=== PATIENT | male | born 1950 | race Caucasian/White ===

== ENCOUNTER 2017-05-21 10:57 | Day surgery (SDC) | payer MEDICARE ==
[~2017-05-21] VITALS: Ht 170.2 cm; Wt 86.9 kg
[2017-05-21] MEDS ORDERED: LISI10TA4 PO ×2 (11:25→15:21)
[2017-05-21] MEDS ORDERED: ALFU10TA2 PO ×2 (11:25→15:21)
[2017-05-21] MEDS ORDERED: ASPI81TA24 (11:25)
[2017-05-21] MEDS ORDERED: ROSU10TA2 PO (11:25)
[2017-05-21] MEDS ORDERED: RANI150T PO ×2 (11:25→15:21)
[2017-05-21] MEDS ORDERED: ALBU17IN INH ×2 (11:25→15:21)
[2017-05-21] MEDS ORDERED: SYMB80INH INH ×2 (11:25→15:21)
[2017-05-21] MEDS ORDERED: GLUCAGON FOR INJ 1 MG VIAL (J1610) IV STA (12:20)
[2017-05-21] MEDS ORDERED: ASPI81TA24 PO (15:21)
[2017-05-21] MEDS ORDERED: CRES10TA32 PO (15:21)
[2017-05-21] MEDS ORDERED: fentaNYL 100 MCG/2 ML INJECTION (J3010) As Ordered ONE (15:22)
[2017-05-21] MEDS ORDERED: LIDOCAINE 2% INJ 100 MG/5 ML SDV (FOR ANES.) As Ordered ONE (15:22)
[2017-05-21] MEDS ORDERED: SUCCINYLCHOLINE 100 MG/5 ML SYRINGE (J0330) As Ordered ONE (15:22)
[2017-05-21] MEDS ORDERED: PROPOFOL 200 MG/20 ML VIAL As Ordered ONE (15:22)
[2017-05-21] MEDS ORDERED: MIDAZOLAM INJ 2 MG/2 ML VIAL (J2250) As Ordered ONE (15:22)
[2017-05-21] MEDS ORDERED: ONDANSETRON 4MG/2ML VIAL (J2405) IV PRN ×2 (16:45)
[2017-05-21] MEDS ORDERED: LR 1,000 ML IV SCH ×2 (16:45)
[2017-05-21 17:25] VITALS: BP 161/84
[2017-05-21 18:00] VITALS: BP 165/82
[2017-05-21 18:30] VITALS: BP 167/82
--- NOTE | 2017-05-26 09:02 | ROOR ---
Patient Name: Senthil Clark Procedure Date: 05/21/2017 3:26 PM Date of : 1950 Age: 67 Room: Main OR Gender: Male Note Status: Finalized Procedure: Upper GI endoscopy Indications: Foreign body in the esophagus Providers: Felipe Vidales Jr, MD Referring MD: Felipe Vidales Jr, MD Requesting Provider: Medicines: General Anesthesia Complications: No immediate complications. Procedure: Pre-Anesthesia Assessment: - Prior to the procedure, a History and Physical was performed, and patient medications and allergies were reviewed. The patient is competent. The risks and benefits of the procedure and the sedation options and risks were discussed with the patient. All questions were answered and informed consent was obtained. Patient identification and proposed procedure were verified by the physician and the nurse in the pre-procedure area and in the procedure room. Mental Status Examination: alert and oriented. Airway Examination: normal oropharyngeal airway and neck mobility. Respiratory Examination: clear to auscultation. CV Examination: normal. ASA Grade Assessment: II - A patient with mild systemic disease. After reviewing the risks and benefits, the patient was deemed in satisfactory condition to undergo the procedure. The anesthesia plan was to use moderate sedation / analgesia (conscious sedation). Immediately prior to administration of medications, the patient was re-assessed for adequacy to receive sedatives. The heart rate, respiratory rate, oxygen saturations, blood pressure, adequacy of pulmonary ventilation, and response to care were monitored throughout the procedure. The physical status of the patient was re-assessed after the procedure. The Endoscope was introduced through the mouth, and advanced to the second part of duodenum. The patient tolerated the procedure well. Findings: The upper third of the esophagus, middle third of the esophagus and lower third of the esophagus were normal. One moderate benign-appearing, intrinsic stenosis was found at the gastroesophageal junction. And was traversed. LA Grade B (one or more mucosal breaks greater than 5 mm, not extending between the tops of two mucosal folds) esophagitis was found at the gastroesophageal junction. Food was found at the gastroesophageal junction. Removal was accomplished with a rat-toothed forceps. The cardia, gastric fundus, gastric body, gastric antrum, prepyloric region of the stomach and pylorus were normal. The duodenal bulb was normal. Impression: - Normal upper third of esophagus, middle third of esophagus and lower third of esophagus. - Benign-appearing esophageal stenosis. - LA Grade B esophagitis. - Food was found in the esophagus. Removal was successful. - Normal cardia, gastric fundus, gastric body, antrum, prepyloric region of the stomach and pylorus. - Normal duodenal bulb. Recommendation: - Discharge patient to home (ambulatory). - Return to my office in 2 weeks. Felipe Vidales MD Felipe Vidales Jr, MD 05/26/2017 9:01:49 AM This report has been signed electronically. Number of Addenda: 0 Note Initiated On: 05/21/2017 3:26 PM Estimated Blood Loss: Estimated blood loss: none.
== END 2017-05-21 19:35 | disposition home or self-care (01) ==
LOC: M ED 12:54 → M SDC 15:24 → M PED 18:05 → M SDC 19:35
PROVIDERS: ATTEND Surgery
DX: T18.128A Food in esophagus causing other injury, initial encounter (principal); X58.XXXA Exposure to other specified factors, initial encounter; Y92.89 Other specified places as the place of occurrence of the external cause; Y93.89 Activity, other specified; Y99.8 Other external cause status; K22.2 Esophageal obstruction; K20.9 Esophagitis, unspecified; I10 Essential (primary) hypertension; E78.5 Hyperlipidemia, unspecified; I25.10 Atherosclerotic heart disease of native coronary artery without angina pectoris; J45.909 Unspecified asthma, uncomplicated; J44.9 Chronic obstructive pulmonary disease, unspecified; N40.0 Benign prostatic hyperplasia without lower urinary tract symptoms; Z88.5 Allergy status to narcotic agent; Z88.8 Allergy status to other drugs, medicaments and biological substances; Z79.899 Other long term (current) drug therapy; Z79.82 Long term (current) use of aspirin; Z87.891 Personal history of nicotine dependence; Z95.5 Presence of coronary angioplasty implant and graft; Z96.1 Presence of intraocular lens
CPT/HCPCS: 43247; 96374; 99284; J0330; J1610; J2250; J3010

== ENCOUNTER 2017-07-20 06:20 | Outpatient (CLI) | payer MEDICARE ==
[~2017-07-20] VITALS: Ht 167.6 cm; Wt 87.1 kg
[~2017-07-20 06:20] MED LIST: ALBU17IN INH; ALFU10TA2 PO; ASPI81TA24; ASPI81TA24 PO; CRES10TA32 PO; LISI10TA4 PO; RANI150T PO; ROSU10TA2 PO; SYMB80INH INH
[2017-07-20] MEDS ORDERED: NS 1,000 ML IV SCH (07:00)
[2017-07-20] MEDS ORDERED: PROPOFOL 200 MG/20 ML VIAL As Ordered ONE (07:07)
[2017-07-20] MEDS ORDERED: LIDOCAINE 2% INJ 100 MG/5 ML SDV (FOR ANES.) As Ordered ONE (07:07)
--- NOTE | 2017-07-20 07:55 | ROOR ---
Patient Name: Senthil Clark Procedure Date: 07/20/2017 7:39 AM Date of : 1950 Age: 67 Room: [facility] Gender: Male Note Status: Finalized Procedure: Upper GI endoscopy Indications: Dysphagia Providers: Felipe Vidales Jr, MD Referring MD: Brooks Godinez MD Requesting Provider: Medicines: Propofol per Anesthesia Complications: No immediate complications. Procedure: Pre-Anesthesia Assessment: - Prior to the procedure, a History and Physical was performed, and patient medications and allergies were reviewed. The patient is competent. The risks and benefits of the procedure and the sedation options and risks were discussed with the patient. All questions were answered and informed consent was obtained. Patient identification and proposed procedure were verified by the physician and the nurse in the pre-procedure area and in the procedure room. Mental Status Examination: alert and oriented. Airway Examination: normal oropharyngeal airway and neck mobility. Respiratory Examination: clear to auscultation. CV Examination: normal. ASA Grade Assessment: II - A patient with mild systemic disease. After reviewing the risks and benefits, the patient was deemed in satisfactory condition to undergo the procedure. The anesthesia plan was to use moderate sedation / analgesia (conscious sedation). Immediately prior to administration of medications, the patient was re-assessed for adequacy to receive sedatives. The heart rate, respiratory rate, oxygen saturations, blood pressure, adequacy of pulmonary ventilation, and response to care were monitored throughout the procedure. The physical status of the patient was re-assessed after the procedure. The Endoscope was introduced through the mouth, and advanced to the second part of duodenum. The upper GI endoscopy was accomplished without difficulty. The patient tolerated the procedure well. Findings: The upper third of the esophagus, middle third of the esophagus and lower third of the esophagus were normal. Abnormal motility was noted in the mid esophagus. There are extra peristaltic waves in the esophageal body. The distal esophagus/lower esophageal sphincter is open. A hiatal hernia was present. The cardia, gastric fundus and gastric body were normal. Diffuse mild inflammation characterized by congestion (edema), erythema, friability and granularity was found in the gastric antrum and in the prepyloric region of the stomach. Biopsies were taken with a cold forceps for histology. The duodenal bulb, first portion of the duodenum and second portion of the duodenum were normal. Impression: - Normal upper third of esophagus, middle third of esophagus and lower third of esophagus. - Abnormal esophageal motility. - Hiatal hernia. - Normal cardia, gastric fundus and gastric body. - Bile gastritis. Biopsied. - Normal duodenal bulb, first portion of the duodenum and second portion of the duodenum. Recommendation: - Discharge patient to home (ambulatory). - Return to my office in 1 month. Felipe Vidales MD Felipe Vidales Jr, MD 07/20/2017 7:55:23 AM This report has been signed electronically. Number of Addenda: 0 Note Initiated On: 07/20/2017 7:39 AM Estimated Blood Loss: Estimated blood loss: none.
[2017-07-20 08:21] VITALS: BP 150/75
== END 2017-07-20 09:00 | disposition home or self-care (01) ==
LOC: M OPP 06:20
PROVIDERS: ATTEND Surgery
DX: R13.10 Dysphagia, unspecified (principal); K44.9 Diaphragmatic hernia without obstruction or gangrene; K29.70 Gastritis, unspecified, without bleeding; K22.4 Dyskinesia of esophagus; I25.10 Atherosclerotic heart disease of native coronary artery without angina pectoris; I10 Essential (primary) hypertension; Z95.5 Presence of coronary angioplasty implant and graft; E78.5 Hyperlipidemia, unspecified; I34.1 Nonrheumatic mitral (valve) prolapse; E11.9 Type 2 diabetes mellitus without complications; R12 Heartburn; M19.90 Unspecified osteoarthritis, unspecified site; J45.909 Unspecified asthma, uncomplicated; J44.9 Chronic obstructive pulmonary disease, unspecified; R06.83 Snoring; N40.1 Benign prostatic hyperplasia with lower urinary tract symptoms; Z88.5 Allergy status to narcotic agent; Z88.8 Allergy status to other drugs, medicaments and biological substances; Z79.82 Long term (current) use of aspirin; Z79.899 Other long term (current) drug therapy

== ENCOUNTER 2017-08-16 12:11 | Emergency (ER) | payer MEDICARE ==
[~2017-08-16] VITALS: Ht 175.3 cm; Wt 89.1 kg
[2017-08-16] MEDS ORDERED: SUCR1TA PO (12:21)
[2017-08-16] MEDS ORDERED: KETOROLAC TROMETHAMINE 10 MG TAB PO ONE (13:15)
[2017-08-16] MEDS ORDERED: MOBI4TAB PO (14:28)
[2017-08-16 14:43] VITALS: BP 158/92
--- NOTE | 2017-08-16 14:57 | REP ---
RIGHT KNEE SERIES: Five views of the right knee are performed. There is no acute fracture or dislocation. There is mild diffuse chondrocalcinosis. There is no joint effusion. There is a tiny spur of the lateral patellar facet. There is slight medial joint space narrowing. IMPRESSION: Mild degenerative changes. No fracture or dislocation. Signed by Clinton Lockwood MD 08/17/2017 05:33 P
== END 2017-08-16 14:44 | disposition home or self-care (01) ==
LOC: M ED 12:11
DX: M17.11 Unilateral primary osteoarthritis, right knee (principal); I10 Essential (primary) hypertension; E11.9 Type 2 diabetes mellitus without complications; E78.4 Other hyperlipidemia

== ENCOUNTER → 2018-05-28 | Outpatient (CLI) | payer OTHER, MEDICARE ==
[2018-05-28 09:33] LABS: ANION GAP 10 MEQ/L (8-16); BLOOD UREA NITROGEN 17 MG/DL (7-18); CALCIUM LEVEL 9.4 MG/DL (8.8-10.2); CARBON DIOXIDE LEVEL 24 MEQ/L (21-32); CHLORIDE LEVEL 108 MEQ/L (98-107); CREATININE FOR GFR 1.42 MG/DL (0.70-1.30); GLOMERULAR FILTRATION RATE 52.9 (>49); GLUCOSE, FASTING 98 MG/DL (70-100); POTASSIUM SERUM 4.3 MEQ/L (3.5-5.1); SODIUM LEVEL 142 MEQ/L (136-145)
== END ==
LOC: M LAB 08:33
DX: Z01.812 Encounter for preprocedural laboratory examination (principal); S83.241D Other tear of medial meniscus, current injury, right knee, subsequent encounter; X58.XXXD Exposure to other specified factors, subsequent encounter; Y92.9 Unspecified place or not applicable
CPT/HCPCS: 80048

== ENCOUNTER → 2020-04-30 | Outpatient (REF) | payer MEDICARE ==
[~2020-04-30] MED LIST changes: -ALFU10TA2 PO; +ALFU10TA3 PO; +CRES10TA PO; -CRES10TA32 PO; +MOBI4TAB PO; -ROSU10TA2 PO; +ROSU10TA6 PO; +SUCR1TA PO
[2020-04-30 18:26] LABS: APPEARANCE, URINE CLEAR (CLEAR); BACTERIA, URINE AUTO NEGATIVE (NEGATIVE); BILIRUBIN, URINE AUTO NEGATIVE (NEGATIVE); BLOOD, URINE BLOOD NEGATIVE (NEGATIVE); COLOR, URINE STRAW (YELLOW); GLUCOSE, URINE (UA) AUTO NEGATIVE (NEGATIVE); KETONE, URINE AUTO NEGATIVE (NEGATIVE); LEUKOCYTE ESTERASE, URINE AUTO NEGATIVE (NEGATIVE); NITRITE, URINE AUTO NEGATIVE (NEGATIVE); PROTEIN, URINE AUTO NEGATIVE (NEGATIVE); RBC, URINE AUTO 0 /HPF (0-3); SPECIFIC GRAVITY URINE AUTO 1.006 (1.002-1.035); SQUAMOUS EPITHELIAL CELL UR AU 0 /HPF (0-6); UROBILINOGEN, URINE AUTO 0.2 mg/dL (0.0-2.0); WBC, URINE AUTO 1 /HPF (0-3)
== END ==
LOC: M SMT 17:14
PROVIDERS: ATTEND Nurse Practitioner Family
DX: R31.0 Gross hematuria (principal)
CPT/HCPCS: 51798; 81001; 87086; 88108; G0463

== ENCOUNTER → 2020-05-19 | Outpatient (CLI) | payer MEDICARE ==
[~2020-05-19] MED LIST changes: +ISOVUE-370 76% 100ML VIAL As Ordered ONE
--- NOTE | 2020-05-19 11:39 | REP ---
CT ABDOMEN AND PELVIS WITH AND WITHOUT IV CONTRAST: (CT urogram) CT abdomen and pelvis performed prior to and following the intravenous administration of 100 mL of Isovue 370. Sagittal and coronal reconstruction images are performed as well as 3D MIP reconstruction images. The visualized lung bases are clear. The liver demonstrates a lobulated cyst in the left lobe measuring 1.7 cm in maximum diameter. The gallbladder is grossly unremarkable. The spleen is normal in size with no intrinsic abnormality. The adrenal glands are normal. No pancreatic mass is seen. There is no evidence of renal, ureteral, or bladder calculus. There is no hydroureteronephrosis. No renal mass is seen. Ureters demonstrate no abnormality. Urinary bladder is mildly distended. There is significant impression upon the base of the bladder due to a markedly enlarged lobulated prostate gland. The prostate measures 10.0 x 7.5 x 7.5 cm. There is no abdominal aortic aneurysm with mild atherosclerotic calcifications. There is a small hiatal hernia. There is no adenopathy. There is no free air or free fluid. There is no bowel wall thickening. There are small bilateral inguinal hernias containing fat. No bone lesion is seen. IMPRESSION: No renal, ureteral or bladder calculus. No renal mass. Markedly enlarged prostate impresses upon the base of the bladder. No adenopathy. Cyst left lobe of the liver. Small bilateral inguinal hernias containing fat. Electronically Signed by Clinton Lockwood MD 05/20/2020 04:36 P
== END ==
LOC: M RAD 07:04
PROVIDERS: ATTEND Nurse Practitioner Family
DX: R31.9 Hematuria, unspecified (principal)
CPT/HCPCS: 74178; Q9967

== ENCOUNTER → 2021-01-01 | Outpatient (CLI) | payer MEDICARE ==
[~2021-01-01] MED LIST changes: +ALBU83IN INH; +FAMO40TA3 PO; +FINA5TAB2 PO; -ISOVUE-370 76% 100ML VIAL As Ordered ONE; +LISI10TA22 PO; -LISI10TA4 PO
== END ==
LOC: M LABSMTC 11:55
PROVIDERS: ATTEND Anesthesiology
DX: Z01.812 Encounter for preprocedural laboratory examination (principal); Z20.822 Contact with and (suspected) exposure to COVID-19

== ENCOUNTER 2021-01-06 10:38 | Day surgery (SDC) | payer MEDICARE ==
[~2021-01-06] VITALS: Ht 170.2 cm; Wt 71.7 kg
[~2021-01-06 10:38] MED LIST changes: +LIDOCAINE 2% 100MG/5ML SDV (FOR ANES.) As Ordered ONE; +NS 1,000 ML IV ONE; +propofoL 200 MG/20 ML VIAL As Ordered ONE
--- OUTSIDE RECORDS SUMMARY | 2021-01-06 10:43 | CCD ---
Author Author [facility] Organization [facility] Address Unknown Phone Unavailable Care Team Providers Care Hand Trucker Name Role Phone Fish, B Raffy KILLIAN Unavailable Unavailable Fish, B Raffy KILLIAN Unavailable Unavailable Fish, B Raffy KILLIAN Unavailable Unavailable Fish, B Raffy KILLIAN Unavailable Unavailable Fish, B Raffy KILLIAN Unavailable Unavailable Fish, B Raffy KILLIAN Unavailable Unavailable Fish, B Raffy KILLIAN Unavailable Unavailable Fish, B Raffy KILLIAN Unavailable Unavailable Fish, B Raffy KILLIAN Unavailable Unavailable Fish, B Raffy KILLIAN Unavailable Unavailable Fish, B Raffy KILLIAN Unavailable Unavailable Fish, B Raffy KILLIAN Unavailable Unavailable Fish, B Raffy KILLIAN Unavailable Unavailable Fish, B Raffy KILLIAN Unavailable Unavailable Fish, B Raffy KILLIAN Unavailable Unavailable Fish, B Raffy KILLIAN Unavailable Unavailable Fish, B Raffy KILLIAN Unavailable Unavailable Fish, B Raffy KILLIAN Unavailable Unavailable Fish, B Raffy KILLIAN Unavailable Unavailable Fish, B Raffy KILLIAN Unavailable Unavailable Fish, B Raffy KILLIAN Unavailable Unavailable Fish, B Raffy KILLIAN Unavailable Unavailable Fish, B Raffy KILLIAN Unavailable Unavailable Fish, B Raffy KILLIAN Unavailable Unavailable Fish, B Raffy KILLIAN Unavailable Unavailable Fish, B Raffy KILLIAN Unavailable Unavailable Fish, B Raffy KILLIAN Unavailable Unavailable Fish, B Raffy KILLIAN Unavailable Unavailable Fish, B Raffy KILLIAN Unavailable Unavailable Fish, B Raffy KILLIAN Unavailable Unavailable Fish, B Raffy KILLIAN Unavailable Unavailable Fish, B Raffy KILLIAN Unavailable Unavailable Fish, B Raffy KILLIAN Unavailable Unavailable Fish, B Raffy KILLIAN Unavailable Unavailable Fish, B Raffy KILLIAN Unavailable Unavailable Fish, B Raffy KILLIAN Unavailable Unavailable Fish, B Raffy KILLIAN Unavailable Unavailable Fish, B Raffy MD Unavailable Unavailable Fish, B Raffy MD Unavailable Unavailable Fish, B Raffy MD Unavailable Unavailable Fish, B Raffy MD Unavailable Unavailable Fish, B Raffy MD Unavailable Unavailable Fish, B Raffy MD Unavailable Unavailable Fish, B Raffy MD Unavailable Unavailable Fish, B Raffy MD Unavailable Unavailable Fish, B Raffy MD Unavailable Unavailable Fish, B Raffy MD Unavailable Unavailable Fish, B Raffy MD Unavailable Unavailable Fish, B Raffy MD Unavailable Unavailable Fish, B Raffy MD Unavailable Unavailable Fish, B Raffy MD Unavailable Unavailable Fish, B Raffy MD Unavailable Unavailable Fish, B Raffy MD Unavailable Unavailable Re-disclosure Warning The records that you are about to access may contain information from federally-assisted alcohol or drug abuse programs. If such information is present, then the following federally mandated warning applies: This information has been disclosed to you from records protected by federal confidentiality rules (42 CFR part 2). The federal rules prohibit you from making any further disclosure of this information unless further disclosure is expressly permitted by the written consent of the person to whom it pertains or as otherwise permitted by 42 CFR part 2. A general authorization for the release of medical or other information is NOT sufficient for this purpose. The Federal rules restrict any use of the information to criminally investigate or prosecute any alcohol or drug abuse patient.The records that you are about to access may contain highly sensitive health information, the redisclosure of which is protected by Article 27-F of the [facility] Public Health law. If you continue you may have access to information: Regarding HIV / AIDS; Provided by facilities licensed or operated by the [facility] Office of Mental Health; or Provided by the [facility] Office for People With Developmental Disabilities. If such information is present, then the following [facility] mandated warning applies: This information has been disclosed to you from confidential records which are protected by state law. State law prohibits you from making any further disclosure of this information without the specific written consent of the person to whom it pertains, or as otherwise permitted by law. Any unauthorized further disclosure in violation of state law may result in a fine or half-way sentence or both. A general authorization for the release of medical or other information is NOT sufficient authorization for further disc losure. Family History Family Member Name Family Member Gender Family Member Status Date o f Status Description Data Source(s) Unknown Male Problem MEDENT ([facility]) Encounters Encounter Providers Location Date Indications Data Source(s ) Outpatient Attender: Raffy Loja MD Physical Therapy 07/14/2020 0 2:15:00 PM EDT [facility] ([facility]) Unknown [address] [address] 06/16/2020 12:00:00 AM EDT eCW1 ([facility]) [place] [address] [address] 04/30/2020 12:00:00 AM EDT eCW1 ([facility]) Unknown [address] [address] 04/30/2020 12:00:00 AM EDT eCW1 ([facility]) Immunizations Vaccine Date Status Description Data Source(s) INFLUENZA VIRUS VACCINE QUADRIVAL SPLIT (65 YR UP)/PF 07/23/2020 12:00:00 AM EDT completed [facility] Medications Medication Brand Name Start Date Product Form Dose Route Admi nistrative Instructions Pharmacy Instructions Status Indications Reaction Description Data Source(s) 1.479-0.188 gram 12/25/2020 12:00:00 AM EST tablet 24 TAKE DIRECTED TAKE DIRECTED SOLD: 12/29/2020 [facility] 10 mg 09/22/2020 12:00:00 AM EDT tablet 90 TAKE ONE TABLET BY MOUTH EVERY DAY TAKE ONE TABLET BY MOUTH EVERY DAY SOLD: 09/29/2020 [facility] Finasteride 5 MG Oral Tablet FINASTERIDE 09/22/2020 12:00:00 AM EDT ta blet 90 TAKE ONE TABLET BY MOUTH EVERY DAY TAKE ONE TABLET BY MOUTH EVERY DAY SOLD: 12/29/2020 [facility] Finasteride 5 MG Oral Tablet FINASTERIDE 09/22/2020 12:00:00 AM EDT ta blet 90 TAKE ONE TABLET BY MOUTH EVERY DAY TAKE ONE TABLET BY MOUTH EVERY DAY SOLD: 09/29/2020 [facility] 40 mg 09/22/2020 12:00:00 AM EDT tablet 90 TAKE ONE TABLET BY MOUTH AT BEDTIME TAKE ONE TABLET BY MOUTH AT BEDTIME SOLD: 09/29/2020 [facility] Famotidine 40 MG Oral Tablet FAMOTIDINE 09/22/2020 12:00:00 AM EDT tab let 90 TAKE ONE TABLET BY MOUTH AT BEDTIME TAKE ONE TABLET BY MOUTH AT BEDTIME SOLD: 12/29/2020 [facility] 10 mg 09/22/2020 12:00:00 AM EDT tablet 90 TAKE ONE TABLET BY MOUTH EVERY DAY TAKE ONE TABLET BY MOUTH EVERY DAY SOLD: 12/29/2020 [facility] 10 mg 09/21/2020 12:00:00 AM EDT tablet 90 TAKE ONE TABLET BY MOUTH EVERY DAY TAKE ONE TABLET BY MOUTH EVERY DAY SOLD: 09/29/2020 [facility] Rosuvastatin calcium 10 MG Oral Tablet ROSUVASTATIN CALCIUM 09/21/2020 12:00:00 AM EDT tablet 90 TAKE ONE TABLET BY MOUTH SIGRID DAY TAKE ONE TABLET BY MOUTH EVERY DAY SOLD: 12/29/2020 [facility] 20 mg 09/15/2020 12:00:00 AM EDT tablet 10 TAKE ONE TABLET BY MOUTH TWICE A DAY FOR 5 DAYS TAKE ONE TABLET BY MOUTH TWICE A DAY FOR 5 DAYS SOLD: 2019 [facility] 40 mg 07/22/2020 12:00:00 AM EDT tablet 90 TAKE ONE TABLET BY MOUTH AT BEDTIME TAKE ONE TABLET BY MOUTH AT BEDTIME SOLD: 07/24/2020 [facility] 10 mg 07/22/2020 12:00:00 AM EDT tablet 90 TAKE ONE TABLET BY MOUTH EVERY DAY TAKE ONE TABLET BY MOUTH EVERY DAY SOLD: 07/24/2020 [facility] 10 mg 07/22/2020 12:00:00 AM EDT tablet 90 TAKE ONE TABLET BY MOUTH EVERY DAY TAKE ONE TABLET BY MOUTH EVERY DAY SOLD: 07/24/2020 [facility] 5 mg 06/16/2020 12:00:00 AM EDT tablet 90 TAKE ONE TABLET BY MOUTH EVERY DAY TAKE ONE TABLET BY MOUTH EVERY DAY SOLD: 06/16/2020 [facility] 5 mg 05/26/2020 12:00:00 AM EDT tablet 30 TAKE ONE TABLET BY MOUTH EVERY DAY TAKE ONE TABLET BY MOUTH EVERY DAY SOLD: 05/26/2020 [facility] Finasteride 5 MG Oral Tablet Finasteride 5 MG 05/26/2020 12:00:00 A M EDT 1.0 {tablet} active Finasteride 5 MG eCW1 ( [facility]) Ciprofloxacin 500 MG Oral Tablet Ciprofloxacin HCl 500 MG Ciprofloxacin HCl 500 MG 04/30/2020 12:00:00 AM EDT active Ciprofloxacin HCl 500 MG eCW1 ([facility]) 500 mg 04/30/2020 12:00:00 AM EDT tablet 1 TAKE ONE TABLET BY MOUTH 1 HOUR PRIOR TO YOUR CYSTOSCOPY ONCE TAKE ONE TABLET BY MOUTH 1 HOUR PRIOR TO YOUR CYSTOSCOPY ONCE SOLD: 04/30/2020 [facility] Ciprofloxacin 500 MG Oral Tablet Ciprofloxacin HCl 500 MG Ciprofloxacin HCl 500 MG 04/30/2020 12:00:00 AM EDT active Ciprofloxacin HCl 500 MG eCW1 ([facility]) 40 mg 01/25/2020 12:00:00 AM EST tablet 90 TAKE ONE TABLET BY MOUTH AT BEDTIME TAKE ONE TABLET BY MOUTH AT BEDTIME SOLD: 01/28/2020 [facility] 10 mg 01/25/2020 12:00:00 AM EST tablet 90 TAKE ONE TABLET BY MOUTH EVERY DAY TAKE ONE TABLET BY MOUTH EVERY DAY SOLD: 01/28/2020 [facility] 10 mg 01/25/2020 12:00:00 AM EST tablet extended release 24 hr 90 TAKE 1 TABLET IMMEDIATELY AFTER THE SAME MEAL EACH DAY ONCE DAILY TAKE 1 TABLET IMMEDIATELY AFTER THE SAME MEAL EACH DAY ONCE DAILY SOLD: 01/28/2020 [facility] 10 mg 01/25/2020 12:00:00 AM EST tablet extended release 24 hr 90 TAKE 1 TABLET IMMEDIATELY AFTER THE SAME MEAL EACH DAY ONCE DAILY TAKE 1 TABLET IMMEDIATELY AFTER THE SAME MEAL EACH DAY ONCE DAILY SOLD: 04/27/2020 [facility] 10 mg 01/25/2020 12:00:00 AM EST tablet 90 TAKE ONE TABLET BY MOUTH EVERY DAY TAKE ONE TABLET BY MOUTH EVERY DAY SOLD: 01/28/2020 [facility] 10 mg 01/25/2020 12:00:00 AM EST tablet 90 TAKE ONE TABLET BY MOUTH EVERY DAY TAKE ONE TABLET BY MOUTH EVERY DAY SOLD: 04/27/2020 [facility] 40 mg 01/25/2020 12:00:00 AM EST tablet 90 TAKE ONE TABLET BY MOUTH AT BEDTIME TAKE ONE TABLET BY MOUTH AT BEDTIME SOLD: 04/27/2020 [facility] 10 mg 01/25/2020 12:00:00 AM EST tablet 90 TAKE ONE TABLET BY MOUTH EVERY DAY TAKE ONE TABLET BY MOUTH EVERY DAY SOLD: 04/27/2020 [facility] 40 mg 11/25/2019 12:00:00 AM EST tablet 30 TAKE ONE TABLET BY MOUTH AT BEDTIME TAKE ONE TABLET BY MOUTH AT BEDTIME SOLD: 11/29/2019 [facility] 40 mg 11/25/2019 12:00:00 AM EST tablet 30 TAKE ONE TABLET BY MOUTH AT BEDTIME TAKE ONE TABLET BY MOUTH AT BEDTIME SOLD: 12/30/2019 [facility] 10 mg 08/25/2019 12:00:00 AM EDT tablet 30 TAKE ONE TABLET BY MOUTH EVERY DAY TAKE ONE TABLET BY MOUTH EVERY DAY SOLD: 12/30/2019 [facility] 10 mg 08/25/2019 12:00:00 AM EDT tablet extended release 24 hr 30 TAKE ONE TABLET BY MOUTH IMMEDIATELY AFTER THE SAME MEAL ONCE DAILY TAKE ONE TABLET BY MOUTH IMMEDIATELY AFTER THE SAME MEAL ONCE DAILY SOLD: 12/30/2019 [facility] 10 mg 08/25/2019 12:00:00 AM EDT tablet 30 TAKE ONE TABLET BY MOUTH EVERY DAY TAKE ONE TABLET BY MOUTH EVERY DAY SOLD: 11/29/2019 [facility] 10 mg 08/25/2019 12:00:00 AM EDT tablet 30 TAKE ONE TABLET BY MOUTH EVERY DAY TAKE ONE TABLET BY MOUTH EVERY DAY SOLD: 11/29/2019 [facility] 10 mg 08/25/2019 12:00:00 AM EDT tablet 30 TAKE ONE TABLET BY MOUTH EVERY DAY TAKE ONE TABLET BY MOUTH EVERY DAY SOLD: 12/30/2019 [facility] 10 mg 08/25/2019 12:00:00 AM EDT tablet extended release 24 hr 30 TAKE ONE TABLET BY MOUTH IMMEDIATELY AFTER THE SAME MEAL ONCE DAILY TAKE ONE TABLET BY MOUTH IMMEDIATELY AFTER THE SAME MEAL ONCE DAILY SOLD: 11/29/2019 [facility] Insurance Providers Payer name Policy type / Coverage type Policy ID Covered libertarian ID Covered libertarian's relationship to tillman Policy Tillman Plan Information [facility] MEDICARE [id number] SP [id number] [facility] [id number] [place] [id number] Self [id number] [facility] ([facility] Medigap Part B [id number] Self [id number] [employer] Medigap Part B [id number] Self [id number] Wellcare Commercial [id number] Self [id number] [place] [id number] Self [id number] [facility] ([facility]) Medigap Part B [id number] Self [id number] [employer] Commercial [id number] Self [id number] [place] [id number] Self [id number] [facility] ([facility]) Medigap Part B [id number] Self [id number] [employer] Commercial [id number] Self [id number] [place] [id number] Self [id number] [employer] Medigap Part B [id number] Self [id number] [facility]) Commercial [id number] Self [id number] [place] [id number] Self [id number] [employer] Medigap Part B [id number] Self [id number] [facility]) Commercial [id number] Self [id number] [place] [id number] Self [id number] [employer] Medigap Part B [id number] Self [id number] [facility]) Commercial [id number] Self [id number] [employer] [id number] SP [id number] MEDICARE [id number] SP [id number] A MEDICARE COMPLETE [id number] SP [id number] [place] [id number] Self [id number] [place] Part [place] [id number] Self [id number] [employer] Medigap Part B [id number] Self [id number] [employer] Medigap Part B [id number] Self [id number] [facility]) Commercial [id number] Self [id number] [place] [id number] Self [id number] [place] Part B [id number] Self [id number] [employer] Medigap Part B [id number] Self [id number] [employer] Medigap Part B [id number] Self [id number] [facility]) Commercial [id number] Self [id number] [place] [id number] Self [id number] [place] Med[place] [id number] Self [id number] [facility]) Commercial [id number] Self [id number] [place] [id number] Self [id number] [place] [id number] Self [id number] [facility]) Commercial [id number] Self [id number] [place] Med[place] [id number] Self [id number] [place] Med[place] B [id number] Self [id number] [facility] ([facility]) Commercial [id number] Self [id number] [place] [id number] Self [id number] [place] [id number] Self [id number] [facility] ([facility]) Commercial [id number] Self [id number] [place] [id number] Self [id number] [place] [id number] Self [id number] [facility] ([facility]) Commercial [id number] Self [id number] [place] [id number] Self [id number] [place] Med[place] [id number] Self [id number] [facility] ([facility]) Commercial [id number] Self [id number] [place] [id number] Self [id number] [place] Part B [id number] Self [id number] [facility] ([facility] Commercial [id number] Self [id number] [place] Med[place] [id number] Self [id number] [id number] [place] Part B [id number] Self [id number] [facility] ([facility]) Commercial [id number] Self [id number] MEDICARE BLUE PPO 306 [id number] SP [id number] UNITED HEALTHCARE -O/P [id number] 18 [id number] MEDICARE PART A -O/P [id number] 18 [id number] [facility] [id number] 18 [id number] BLUE CROSS BLUE SHIELD-O/P [id number] 18 [id number] [employer] MEDICARE ADVANTAGE -O/P [id number] 18 [id number] BLUE CROSS BLUE SHIELD-PHYSICIAN [id number] 18 [id number] Problems, Conditions, and Diagnoses Code Display Name Description Problem Type Effective Dates Data Source(s) R31.0 Gross hematuria Gross hematuria Problem 04/30/2020 12:0 0:00 AM EDT eCW1 ([facility]) Surgeries/Procedures Procedure Description Date Indications Data Source(s) RADIOLOGIC EXAM KNEE COMPLETE 4/MORE VIEWS 07/14/2020 12:00:00 AM EDT [facility] ([facility]) uro PVR (Post Voiding Residual) Bladder Scan 0 12:00:00 AM EDT eCW1 ([facility]) Results ID Date Data Source [id number] 01/01/2021 11:30:00 AM EST [facility] Name Value Range Interpretation Code Description Data [facility] rce(s) Supporting Document(s) SARS coronavirus 2 RNA Not Detected [facility] [place] This lab was ordered by [facility] and reported by [facility]. Procedure Social History Code Duration Value Status Description Data Source(s ) Smoking 05/26/2020 12:00:00 AM EDT Former Smoker completed Former Smoker eCW1 ([facility]) Smoking 04/30/2020 12:00:00 AM EDT Former Smoker completed Former Smoker eCW1 ([facility]) Smoking 04/30/2020 12:00:00 AM EDT Former Smoker completed Former Smoker eCW1 ([facility]) Vital Signs ID Date Data Source UNK Name Value Range Interpretation Code Description Data Source(s) Diastolic blood pressure 81 mm[Hg] 81 mm[Hg] eCW1 ([facility]) Systolic blood pressure 145 mm[Hg] 145 mm[Hg] e CW1 ([facility]) Body temperature 98 [degF] 98 [degF] eCW1 ([facility]) Respiratory rate 18 /min 18 /min eCW1 ([facility]) Heart rate 82 /min 82 /min eCW1 ([facility]) Body mass index (BMI) [Ratio] 25.54 kg/m2 25.54 kg/m2 eCW1 ([facility]) Body height 68 [in_i] 68 [in_i] eCW1 ([facility]) Body weight 168 [lb_av] 168 [lb_av] eCW1 ([facility]) Patient Treatment Plan of Care Planned Activity Planned Date Details Description Data Source (s) Finasteride 5 MG Oral Tablet 05/26/2020 12:00:00 AM EDT eCW1 ([facility]) Ciprofloxacin 500 MG Oral Tablet 04/30/2020 12:00:00 AM EDT eCW1 ([facility]) Ciprofloxacin 500 MG Oral Tablet 04/30/2020 12:00:00 AM EDT eCW1 ([facility])
--- NOTE | 2021-01-06 11:50 | ROOR ---
Patient Name: Senthil Clark Procedure Date: 01/06/2021 11:35 AM Date of : 1950 Age: 70 Room: [facility] Gender: Male Note Status: Finalized Procedure: Upper Endoscopy + Biopsies Indications: Heartburn, Exclusion of Rosado's esophagus Providers: Bar Jiménez MD Referring MD: Brooks Godinez MD Requesting Provider: Medicines: Monitored Anesthesia Care Complications: No immediate complications. Procedure: Pre-Anesthesia Assessment: - The heart rate, respiratory rate, oxygen saturations, blood pressure, adequacy of pulmonary ventilation, and response to care were monitored throughout the procedure. The Endoscope was introduced through the mouth, and advanced to the second part of duodenum. The upper GI endoscopy was accomplished without difficulty. The patient tolerated the procedure well. Findings: The Z-line was regular and was found 35 cm from the incisors. Multiple biopsies were obtained with cold forceps for evaluation to rule out Rosado's Esophagus randomly at the gastroesophageal junction. A large hiatal hernia was present. No other significant abnormalities were identified in a careful examination of the stomach. Biopsies were taken with a cold forceps in the gastric antrum for Helicobacter pylori testing. The exam was otherwise without abnormality. Impression: - Z-line regular, 35 cm from the incisors. - Large hiatal hernia. - The examination was otherwise normal. - Multiple biopsies were obtained at the gastroesophageal junction. - Biopsies were taken with a cold forceps for Helicobacter pylori testing. - The examination was otherwise normal. Recommendation: - Patient has a contact number available for emergencies. The signs and symptoms of potential delayed complications were discussed with the patient. Return to normal activities tomorrow. Written discharge instructions were provided to the patient. - High fiber diet. - Discharge patient to home. - Follow an antireflux regimen. - Continue present medications. - Await pathology results. - Telephone GI clinic for pathology results in 1 week. - Return to referring physician. - The findings and recommendations were discussed with the patient. Procedure Code(s): --- Professional --- 54584, Esophagogastroduodenoscopy, flexible, transoral; with biopsy, single or multiple Diagnosis Code(s): --- Professional --- K44.9, Diaphragmatic hernia without obstruction or gangrene R12, Heartburn CPT copyright 2019 [employer]. All rights reserved. The codes documented in this report are preliminary and upon hoistman review may be revised to meet current compliance requirements. Bar Jiménez MD Bar Jiménez MD 01/06/2021 11:50:27 AM Electronically signed by Bar Jiménez MD Number of Addenda: 0 Note Initiated On: 01/06/2021 11:35 AM Estimated Blood Loss: Estimated blood loss: none.
--- NOTE | 2021-01-06 12:07 | ROOR ---
Patient Name: Senthil Clark Procedure Date: 01/06/2021 11:36 AM Date of : 1950 Age: 70 Room: [facility] Gender: Male Note Status: Finalized Procedure: Total Colonoscopy to Cecum Indications: Screening for colorectal malignant neoplasm Providers: Bar Jiménez MD Referring MD: Brooks Godinez MD Requesting Provider: Medicines: Monitored Anesthesia Care Complications: No immediate complications. Procedure: Pre-Anesthesia Assessment: - The heart rate, respiratory rate, oxygen saturations, blood pressure, adequacy of pulmonary ventilation, and response to care were monitored throughout the procedure. The Colonoscope was introduced through the anus and advanced to the cecum, identified by appendiceal orifice and ileocecal valve. The colonoscopy was performed without difficulty. The patient tolerated the procedure well. The quality of the bowel preparation was fair. Findings: The perianal and digital rectal examinations were normal. Non-bleeding internal hemorrhoids were found during retroflexion. The hemorrhoids were small and Grade I (internal hemorrhoids that do not prolapse). A moderate amount of stool was found in the entire colon, interfering with visualization. The exam was otherwise without abnormality on direct and retroflexion views. Impression: - Preparation of the colon was fair. - Non-bleeding internal hemorrhoids. - Stool in the entire examined colon. - The examination was otherwise normal on direct and retroflexion views. - No specimens collected. - The exam was otherwise normal to the cecum. Recommendation: - Patient has a contact number available for emergencies. The signs and symptoms of potential delayed complications were discussed with the patient. Return to normal activities tomorrow. Written discharge instructions were provided to the patient. - High fiber diet. - Discharge patient to home. - Continue present medications. - Repeat colonoscopy in 10 years for screening purposes. - Return to referring physician. - The findings and recommendations were discussed with the patient. Procedure Code(s): --- Professional --- 01907, Colonoscopy, flexible; diagnostic, including collection of specimen(s) by brushing or washing, when performed (separate procedure) Diagnosis Code(s): --- Professional --- Z12.11, Encounter for screening for malignant neoplasm of colon K64.0, First degree hemorrhoids CPT copyright 2019 [employer]. All rights reserved. The codes documented in this report are preliminary and upon death surveys coder review may be revised to meet current compliance requirements. Bar Jiménez MD Bar Jiménez MD 01/06/2021 12:07:16 PM Electronically signed by Bar Jiménez MD Number of Addenda: 0 Note Initiated On: 01/06/2021 11:36 AM Estimated Blood Loss: Estimated blood loss: none.
[2021-01-06 12:45] VITALS: BP 159/75
== END 2021-01-06 12:54 | disposition home or self-care (01) ==
LOC: M OPP 10:38
PROVIDERS: ATTEND Internal Medicine Gastroenterology
DX: Z12.11 Encounter for screening for malignant neoplasm of colon (principal); R12 Heartburn; K64.0 First degree hemorrhoids; D13.1 Benign neoplasm of stomach; K44.9 Diaphragmatic hernia without obstruction or gangrene; I25.10 Atherosclerotic heart disease of native coronary artery without angina pectoris; I10 Essential (primary) hypertension; E78.5 Hyperlipidemia, unspecified; E11.9 Type 2 diabetes mellitus without complications; M19.90 Unspecified osteoarthritis, unspecified site; F32.9 Major depressive disorder, single episode, unspecified; J44.9 Chronic obstructive pulmonary disease, unspecified; Z87.891 Personal history of nicotine dependence; Z88.5 Allergy status to narcotic agent; Z88.8 Allergy status to other drugs, medicaments and biological substances; Z79.82 Long term (current) use of aspirin; Z79.899 Other long term (current) drug therapy
CPT/HCPCS: 43239; 88305; G0121

== ENCOUNTER → 2022-01-24 | Outpatient (CLI) | payer MEDICARE ==
[~2022-01-24] MED LIST changes: -LIDOCAINE 2% 100MG/5ML SDV (FOR ANES.) As Ordered ONE; -NS 1,000 ML IV ONE; -propofoL 200 MG/20 ML VIAL As Ordered ONE
[2022-01-24 13:29] LABS: BASO # 0.1 10^3/uL (0.0-0.2); EOS # 0.1 10^3/uL (0.0-0.5); EOS % 1.6 % (0.0-3.0); HEMATOCRIT 46.4 % (42.0-52.0); HEMOGLOBIN 14.8 g/dl (13.5-17.5); LYMPH # 1.7 10^3/uL (1.5-5.0); LYMPH % 25.2 % (24.0-44.0); MEAN CORPUSCULAR HEMOGLOBIN 28.5 pg (27.0-33.0); MEAN CORPUSCULAR HGB CONC 31.9 g/dl (32.0-36.5); MEAN CORPUSCULAR VOLUME 89.2 fl (80.0-96.0); MONO # 0.8 10^3/uL (0.0-0.8); MONO % 11.1 % (2.0-8.0); NEUTROPHILS # 4.2 10^3/uL (1.5-8.5); PLATELET COUNT, AUTOMATED 260 10^3/uL (150-450); WHITE BLOOD COUNT 6.8 10^3/uL (4.0-10.0)
[2022-01-24 14:01] LABS: ERYTHROCYTE SEDIMENTATION RATE 4 mm/hr (0-20)
[2022-01-24 16:43] LABS: ALBUMIN 4.2 GM/DL (3.2-5.2); ALT/SGPT 21 U/L (12-78); BILIRUBIN,TOTAL 0.6 MG/DL (0.2-1.0); BLOOD UREA NITROGEN 23 MG/DL (7-18); CALCIUM LEVEL 10.3 MG/DL (8.8-10.2); CARBON DIOXIDE LEVEL 28 MEQ/L (21-32); CHLORIDE LEVEL 106 MEQ/L (98-107); FREE T4 0.98 NG/DL (0.76-1.46); GLOMERULAR FILTRATION RATE 58.1 (>42); GLUCOSE, FASTING 90 MG/DL (70-100); POTASSIUM SERUM 4.6 MEQ/L (3.5-5.1); RHEUMATOID FACTOR QUANT < 10.0 IU/ML (<15.0); SODIUM LEVEL 140 MEQ/L (136-145); TOTAL PROTEIN 7.9 GM/DL (6.4-8.2); VITAMIN B12 LEVEL 519 PG/ML
== END ==
LOC: M PLALAB 09:33
PROVIDERS: ATTEND Psychiatry & Neurology Neurology
DX: E07.9 Disorder of thyroid, unspecified (principal); E53.8 Deficiency of other specified B group vitamins; R41.3 Other amnesia

== ENCOUNTER 2022-04-19 09:08 | Emergency (ER) | payer MEDICARE ==
[~2022-04-19] VITALS: Ht 165.1 cm; Wt 75.0 kg
[2022-04-19 10:03] LABS: VENOUS BASE EXCESS -0.8 (-2.0-2.0); VENOUS HCO3 24.6 MEQ/L (23.0-27.0); VENOUS O2 SATURATION 77.8 % (60.0-80.0); VENOUS PARTIAL PRESSURE CO2 43.6 mmHg (38.0-50.0); VENOUS PARTIAL PRESSURE O2 41.2 mmHg (30.0-50.0); VENOUS STANDARD HCO3 23.3 MEQ/L
[2022-04-19 10:07] LABS: BASO # 0.1 10^3/uL (0.0-0.2); BASO % 0.6 % (0.0-1.0); EOS # 0.1 10^3/uL (0.0-0.5); EOS % 1.7 % (0.0-3.0); HEMATOCRIT 45.5 % (42.0-52.0); HEMOGLOBIN 14.9 g/dl (13.5-17.5); LYMPH # 1.9 10^3/uL (1.5-5.0); LYMPH % 23.8 % (24.0-44.0); MEAN CORPUSCULAR HEMOGLOBIN 29.2 pg (27.0-33.0); MEAN CORPUSCULAR HGB CONC 32.7 g/dl (32.0-36.5); MEAN CORPUSCULAR VOLUME 89.2 fl (80.0-96.0); MONO % 11.7 % (2.0-8.0); NEUTROPHILS % 61.8 % (36.0-66.0); PLATELET COUNT, AUTOMATED 256 10^3/uL (150-450); WHITE BLOOD COUNT 8.2 10^3/uL (4.0-10.0)
[2022-04-19 10:24] LABS: OSMOLALITY SERUM 294 MOSM/KG (280-301)
[2022-04-19 10:47] LABS: ALBUMIN 3.9 GM/DL (3.2-5.2); ALT/SGPT 18 U/L (12-78); BILIRUBIN,DIRECT 0.2 MG/DL (0.0-0.2); BILIRUBIN,TOTAL 0.7 MG/DL (0.2-1.0); BLOOD UREA NITROGEN 24 MG/DL (7-18); CALCIUM LEVEL 10.3 MG/DL (8.8-10.2); CARBON DIOXIDE LEVEL 25 MEQ/L (21-32); CHLORIDE LEVEL 108 MEQ/L (98-107); GLOMERULAR FILTRATION RATE > 60.0 (>42); GLUCOSE, FASTING 97 MG/DL (70-100); POTASSIUM SERUM 4.8 MEQ/L (3.5-5.1); SODIUM LEVEL 141 MEQ/L (136-145); THYROID STIMULATING HORMONE 0.944 uIU/ML (0.358-3.740); TOTAL PROTEIN 7.3 GM/DL (6.4-8.2)
[2022-04-19 10:57] LABS: RSV AMPLIFICATION NEGATIVE (NEGATIVE)
[2022-04-19 14:30] VITALS: BP 153/78
== END 2022-04-19 14:51 | disposition home or self-care (01) ==
LOC: EDBD 09:08 → M ED 09:08
DX: F03.90 Unspecified dementia, unspecified severity, without behavioral disturbance, psychotic disturbance, mood disturbance, and anxiety (principal); R07.9 Chest pain, unspecified; E11.9 Type 2 diabetes mellitus without complications; I10 Essential (primary) hypertension; F32.89 Other specified depressive episodes; Z87.891 Personal history of nicotine dependence; Z82.49 Family history of ischemic heart disease and other diseases of the circulatory system; I34.9 Nonrheumatic mitral valve disorder, unspecified; Z79.82 Long term (current) use of aspirin; Z79.899 Other long term (current) drug therapy; Z88.5 Allergy status to narcotic agent; Z88.8 Allergy status to other drugs, medicaments and biological substances

== ENCOUNTER 2022-04-23 16:03 | Inpatient (IN) | payer MEDICARE ==
[~2022-04-23] VITALS: Ht 167.6 cm; Wt 70.5 kg
[~2022-04-23 16:03] MED LIST changes: +ALBU2.5V10 INH; -ALBU83IN INH
[2022-04-23 17:27] LABS: BASO % 0.5 % (0.0-1.0); EOS # 0.1 10^3/uL (0.0-0.5); EOS % 1.1 % (0.0-3.0); HEMATOCRIT 43.6 % (42.0-52.0); HEMOGLOBIN 14.1 g/dl (13.5-17.5); LYMPH # 1.5 10^3/uL (1.5-5.0); LYMPH % 17.8 % (24.0-44.0); MEAN CORPUSCULAR HEMOGLOBIN 28.5 pg (27.0-33.0); MEAN CORPUSCULAR HGB CONC 32.3 g/dl (32.0-36.5); MEAN CORPUSCULAR VOLUME 88.1 fl (80.0-96.0); MONO # 0.8 10^3/uL (0.0-0.8); NEUTROPHILS # 5.8 10^3/uL (1.5-8.5); NEUTROPHILS % 70.2 % (36.0-66.0); PLATELET COUNT, AUTOMATED 259 10^3/uL (150-450); RED BLOOD COUNT 4.95 10^6/uL (4.30-6.10); WHITE BLOOD COUNT 8.3 10^3/uL (4.0-10.0)
[2022-04-23 17:39] LABS: INR 1.05; PROTHROMBIN TIME 14.1 SECONDS (12.7-14.5)
[2022-04-23 17:40] LABS: PARTIAL THROMBOPLASTIN TIME 29.5 SECONDS (25.9-37.0)
[2022-04-23 17:49] LABS: CK-MB VALUE MASS 1.7 NG/ML (<3.6); MB/CK RELATIVE INDEX 1.1 (< OR =4)
[2022-04-23 17:58] LABS: CALCIUM LEVEL 9.6 MG/DL (8.8-10.2); CREATININE FOR GFR 1.35 MG/DL (0.70-1.30); ETHYL ALCOHOL (ETHANOL) 0.004 % (0.000-0.010); FREE T4 1.03 NG/DL (0.76-1.46); GLOMERULAR FILTRATION RATE 55.6 (>42); POTASSIUM SERUM 4.1 MEQ/L (3.5-5.1); THYROID STIMULATING HORMONE 1.1 uIU/ML (0.358-3.740)
[2022-04-23 18:41] LABS: CK-MB VALUE MASS 2.3 NG/ML (<3.6); MB/CK RELATIVE INDEX 1.07 (< OR =4)
[2022-04-23] MEDS ORDERED: NS 500 ML IV ONE (18:55)
[2022-04-23] MEDS ORDERED: DONE10TA90 PO (19:27)
[2022-04-23] MEDS ORDERED: HOME MED LIST COMPLETE! XX SCH (19:30)
[2022-04-23] MEDS: NS 1,000 ML IV SCH (20:55)
[2022-04-23] MEDS ORDERED: INSULIN LISPRO (NovoLOG) PER UNIT SC SCH (21:00)
[2022-04-23] MEDS ORDERED: ALBUTEROL SULFATE 2.5 MG/0.5 ML INH NEB SOLN INH PRN (21:00)
[2022-04-23] MEDS ORDERED: GLUCOSE 4GM CHEW TABLET PO PRN (23:05)
[2022-04-23] MEDS ORDERED: DEXTROSE 50% 50 ML SYRINGE IV PRN (23:05)
[2022-04-23] MEDS ORDERED: GLUCAGON INJ 1MG VIAL SC PRN (23:05)
[2022-04-23 23:30] VITALS: BP 154/76
[2022-04-24 06:00] VITALS: BP 147/76
[2022-04-24 06:32] LABS: BASO # 0.1 10^3/uL (0.0-0.2); BASO % 0.8 % (0.0-1.0); EOS # 0.2 10^3/uL (0.0-0.5); EOS % 2.7 % (0.0-3.0); HEMATOCRIT 40.6 % (42.0-52.0); HEMOGLOBIN 13.1 g/dl (13.5-17.5); LYMPH # 1.8 10^3/uL (1.5-5.0); LYMPH % 28.3 % (24.0-44.0); MEAN CORPUSCULAR HEMOGLOBIN 28.7 pg (27.0-33.0); MEAN CORPUSCULAR HGB CONC 32.3 g/dl (32.0-36.5); MEAN CORPUSCULAR VOLUME 88.8 fl (80.0-96.0); MONO # 0.9 10^3/uL (0.0-0.8); NEUTROPHILS # 3.4 10^3/uL (1.5-8.5); NEUTROPHILS % 53.9 % (36.0-66.0); PLATELET COUNT, AUTOMATED 213 10^3/uL (150-450); RED BLOOD COUNT 4.57 10^6/uL (4.30-6.10); WHITE BLOOD COUNT 6.4 10^3/uL (4.0-10.0)
[2022-04-24 06:52] LABS: BLOOD UREA NITROGEN 17 MG/DL (7-18); CALCIUM LEVEL 9.1 MG/DL (8.8-10.2); CARBON DIOXIDE LEVEL 27 MEQ/L (21-32); CHLORIDE LEVEL 113 MEQ/L (98-107); CREATININE FOR GFR 1.15 MG/DL (0.70-1.30); GLOMERULAR FILTRATION RATE > 60.0 (>42); GLUCOSE, FASTING 95 MG/DL (70-100); POTASSIUM SERUM 4.1 MEQ/L (3.5-5.1); SODIUM LEVEL 145 MEQ/L (136-145)
[2022-04-24] MEDS: NS 1,000 ML IV SCH (07:28)
[2022-04-24] MEDS ORDERED: INSULIN LISPRO (NovoLOG) PER UNIT SC SCH (07:30)
[2022-04-24] MEDS: DONEPEZIL 5 MG TAB PO SCH (08:45)
[2022-04-24] MEDS: FAMOTIDINE 20 MG TAB PO SCH (08:45)
[2022-04-24] MEDS: ASPIRIN 81MG ENTERIC TABLET PO SCH (08:46)
[2022-04-24] MEDS: ROSUVASTATIN 10 MG TAB (CRESTOR) PO SCH (08:46)
[2022-04-24] MEDS: FINASTERIDE 5MG TAB PO SCH (08:46)
[2022-04-24] MEDS: HEPARIN SOD (PORCINE) 5000UNITS/ML 1ML VIAL/SYRINGE SQ SCH ×2 (08:47→21:39)
[2022-04-24 14:00] VITALS: BP 148/72
[2022-04-24] MEDS ORDERED: PREVNAR 13 VACCINE SYRINGE IM ONE (18:00)
[2022-04-24 20:40] VITALS: BP 138/68
[2022-04-25 05:21] VITALS: BP 147/72
[2022-04-25 06:21] LABS: BASO # 0.1 10^3/uL (0.0-0.2); BASO % 0.7 % (0.0-1.0); EOS # 0.2 10^3/uL (0.0-0.5); EOS % 3.2 % (0.0-3.0); HEMOGLOBIN 12.9 g/dl (13.5-17.5); LYMPH # 2.3 10^3/uL (1.5-5.0); LYMPH % 31.2 % (24.0-44.0); MEAN CORPUSCULAR HEMOGLOBIN 29.7 pg (27.0-33.0); MEAN CORPUSCULAR HGB CONC 33.1 g/dl (32.0-36.5); MEAN CORPUSCULAR VOLUME 89.9 fl (80.0-96.0); MONO # 0.9 10^3/uL (0.0-0.8); MONO % 11.5 % (2.0-8.0); PLATELET COUNT, AUTOMATED 211 10^3/uL (150-450); RED BLOOD COUNT 4.34 10^6/uL (4.30-6.10); WHITE BLOOD COUNT 7.5 10^3/uL (4.0-10.0)
[2022-04-25 06:37] LABS: BLOOD UREA NITROGEN 19 MG/DL (7-18); CALCIUM LEVEL 9.3 MG/DL (8.8-10.2); CARBON DIOXIDE LEVEL 26 MEQ/L (21-32); CHLORIDE LEVEL 111 MEQ/L (98-107); CREATININE FOR GFR 1.16 MG/DL (0.70-1.30); GLOMERULAR FILTRATION RATE > 60.0 (>42); GLUCOSE, FASTING 91 MG/DL (70-100); POTASSIUM SERUM 4.5 MEQ/L (3.5-5.1); SODIUM LEVEL 143 MEQ/L (136-145)
[2022-04-25] MEDS: HEPARIN SOD (PORCINE) 5000UNITS/ML 1ML VIAL/SYRINGE SQ SCH ×2 (08:09→21:41)
[2022-04-25] MEDS: ASPIRIN 81MG ENTERIC TABLET PO SCH (08:10)
[2022-04-25] MEDS: ROSUVASTATIN 10 MG TAB (CRESTOR) PO SCH (08:10)
[2022-04-25] MEDS: DONEPEZIL 5 MG TAB PO SCH (08:10)
[2022-04-25] MEDS: FAMOTIDINE 20 MG TAB PO SCH (08:10)
[2022-04-25] MEDS: FINASTERIDE 5MG TAB PO SCH (08:10)
[2022-04-25 14:00] VITALS: BP 141/67
[2022-04-25 22:00] VITALS: BP 140/67
[2022-04-25] MEDS: levETIRAcetam 250MG TABLET (KEPPRA) PO SCH (23:22)
[2022-04-26 06:00] VITALS: BP 148/70
[2022-04-26 06:46] LABS: BASO # 0.1 10^3/uL (0.0-0.2); BASO % 0.5 % (0.0-1.0); EOS # 0.3 10^3/uL (0.0-0.5); HEMATOCRIT 43.7 % (42.0-52.0); LYMPH # 1.7 10^3/uL (1.5-5.0); LYMPH % 18.8 % (24.0-44.0); MEAN CORPUSCULAR HEMOGLOBIN 28.7 pg (27.0-33.0); MEAN CORPUSCULAR VOLUME 89.7 fl (80.0-96.0); MONO # 1.3 10^3/uL (0.0-0.8); MONO % 14.2 % (2.0-8.0); NEUTROPHILS # 5.8 10^3/uL (1.5-8.5); NEUTROPHILS % 63.1 % (36.0-66.0); PLATELET COUNT, AUTOMATED 219 10^3/uL (150-450); RED BLOOD COUNT 4.87 10^6/uL (4.30-6.10); WHITE BLOOD COUNT 9.1 10^3/uL (4.0-10.0)
[2022-04-26 07:02] LABS: BLOOD UREA NITROGEN 21 MG/DL (7-18); CARBON DIOXIDE LEVEL 28 MEQ/L (21-32); CHLORIDE LEVEL 110 MEQ/L (98-107); CREATININE FOR GFR 1.22 MG/DL (0.70-1.30); GLOMERULAR FILTRATION RATE > 60.0 (>42); GLUCOSE, FASTING 89 MG/DL (70-100); POTASSIUM SERUM 5.1 MEQ/L (3.5-5.1); SODIUM LEVEL 143 MEQ/L (136-145)
[2022-04-26] MEDS: FAMOTIDINE 20 MG TAB PO SCH (09:12)
[2022-04-26] MEDS: ROSUVASTATIN 10 MG TAB (CRESTOR) PO SCH (09:12)
[2022-04-26] MEDS: ASPIRIN 81MG ENTERIC TABLET PO SCH (09:12)
[2022-04-26] MEDS: FINASTERIDE 5MG TAB PO SCH (09:13)
[2022-04-26] MEDS: DONEPEZIL 5 MG TAB PO SCH (09:13)
[2022-04-26 09:14] VITALS: BP 123/61
[2022-04-26] MEDS: HEPARIN SOD (PORCINE) 5000UNITS/ML 1ML VIAL/SYRINGE SQ SCH (09:14)
[2022-04-26] MEDS: levETIRAcetam 250MG TABLET (KEPPRA) PO SCH (09:14)
[2022-04-26] MEDS ORDERED: KETOROLAC 30 MG/ML 1ML VIAL IV ONE (12:25)
[2022-04-26] MEDS ORDERED: ACETAMINOPHEN TAB 650MG DOSE (2X325MG) PO PRN (12:25)
[2022-04-26 14:00] VITALS: BP 123/68
[2022-04-26] MEDS ORDERED: KEPP250T5 PO (15:35)
== END 2022-04-26 18:14 | disposition home or self-care (01) | DRG 101 ==
LOC: M ED 16:03 → EDBD 16:03 → M ED INP 20:10 → M MSPAV 23:30
PROVIDERS: ADMIT Family Medicine; ATTEND Internal Medicine Nephrology
DX: G40.209 Localization-related (focal) (partial) symptomatic epilepsy and epileptic syndromes with complex partial seizures, not intractable, without status epilepticus (principal); N17.9 Acute kidney failure, unspecified; I67.89 Other cerebrovascular disease; G45.9 Transient cerebral ischemic attack, unspecified; E11.51 Type 2 diabetes mellitus with diabetic peripheral angiopathy without gangrene; I10 Essential (primary) hypertension; Z66 Do not resuscitate; F32.A Depression, unspecified; J44.9 Chronic obstructive pulmonary disease, unspecified; E78.5 Hyperlipidemia, unspecified; Z90.49 Acquired absence of other specified parts of digestive tract; Z87.891 Personal history of nicotine dependence; F10.11 Alcohol abuse, in remission; I95.1 Orthostatic hypotension; N40.0 Benign prostatic hyperplasia without lower urinary tract symptoms; Z20.822 Contact with and (suspected) exposure to COVID-19; Z79.82 Long term (current) use of aspirin; Z79.899 Other long term (current) drug therapy; Z88.5 Allergy status to narcotic agent; Z88.8 Allergy status to other drugs, medicaments and biological substances; F20.9 Schizophrenia, unspecified; G30.9 Alzheimer's disease, unspecified; F02.80 Dementia in other diseases classified elsewhere, unspecified severity, without behavioral disturbance, psychotic disturbance, mood disturbance, and anxiety; I73.9 Peripheral vascular disease, unspecified; J45.909 Unspecified asthma, uncomplicated

== ENCOUNTER 2022-04-28 11:28 | Inpatient (IN) | payer MEDICARE ==
[~2022-04-28 11:28] MED LIST changes: +DONE10TA90 PO; +KEPP250T5 PO
[2022-04-28] MEDS ORDERED: NS 1,000 ML IV ONE (12:45)
[2022-04-28 13:39] LABS: BASO # 0.1 10^3/uL (0.0-0.2); BASO % 0.5 % (0.0-1.0); EOS # 0.1 10^3/uL (0.0-0.5); EOS % 0.6 % (0.0-3.0); HEMOGLOBIN 14.2 g/dl (13.5-17.5); LYMPH # 1.4 10^3/uL (1.5-5.0); LYMPH % 12.7 % (24.0-44.0); MEAN CORPUSCULAR HEMOGLOBIN 28.7 pg (27.0-33.0); MEAN CORPUSCULAR HGB CONC 32.3 g/dl (32.0-36.5); MEAN CORPUSCULAR VOLUME 89.1 fl (80.0-96.0); MONO # 1.3 10^3/uL (0.0-0.8); MONO % 12.2 % (2.0-8.0); NEUTROPHILS # 8.1 10^3/uL (1.5-8.5); NEUTROPHILS % 73.5 % (36.0-66.0); PLATELET COUNT, AUTOMATED 208 10^3/uL (150-450); RED BLOOD COUNT 4.94 10^6/uL (4.30-6.10)
[2022-04-28 14:07] LABS: ALBUMIN 3.7 GM/DL (3.2-5.2); BILIRUBIN,DIRECT 0.1 MG/DL (0.0-0.2); CALCIUM LEVEL 9.5 MG/DL (8.8-10.2); CREATININE FOR GFR 1.51 MG/DL (0.70-1.30); GLOMERULAR FILTRATION RATE 48.9 (>42); POTASSIUM SERUM 5.2 MEQ/L (3.5-5.1); TOTAL PROTEIN 7.2 GM/DL (6.4-8.2)
[2022-04-28 14:09] LABS: CK-MB VALUE MASS 1.2 NG/ML (<3.6); MB/CK RELATIVE INDEX 1.48 (< OR =4)
[2022-04-28 14:24] LABS: RSV AMPLIFICATION NEGATIVE (NEGATIVE)
[2022-04-28 14:43] LABS: CK-MB VALUE MASS < 1.0 NG/ML (<3.6); CPK CREATINE PHOSPHOKINASE 66 U/L (39-308)
[2022-04-28 14:44] LABS: MB/CK RELATIVE INDEX 1.52 (< OR =4)
[2022-04-28] MEDS ORDERED: LEVE250T5 PO (15:46)
[2022-04-28] MEDS ORDERED: HOME MED LIST COMPLETE! XX SCH (16:00)
[2022-04-28] MEDS ORDERED: DEXTROSE 50% 50 ML SYRINGE IV PRN (17:25)
[2022-04-28] MEDS ORDERED: GLUCAGON INJ 1MG VIAL SC PRN (17:25)
[2022-04-28] MEDS ORDERED: GLUCOSE 4GM CHEW TABLET PO PRN (17:25)
[2022-04-28] MEDS ORDERED: INSULIN LISPRO (NovoLOG) PER UNIT SC SCH ×2 (17:30→21:00)
[2022-04-28] MEDS: NS 1,000 ML IV SCH (18:34)
[2022-04-28 18:40] LABS: INR 1.06; PROTHROMBIN TIME 14.2 SECONDS (12.7-14.5)
[2022-04-28 18:41] LABS: HEMOGLOBIN A1c 5.6 %; PARTIAL THROMBOPLASTIN TIME 28.6 SECONDS (25.9-37.0)
[2022-04-28] MEDS ORDERED: FINASTERIDE 5MG TAB PO SCH (21:00)
[2022-04-28] MEDS: levETIRAcetam 250MG TABLET (KEPPRA) PO SCH (21:05)
[2022-04-28 22:34] VITALS: BP 131/65
[2022-04-29] MEDS: NS 1,000 ML IV SCH (04:08)
[2022-04-29 06:00] VITALS: BP 125/67
[2022-04-29 06:22] LABS: HEMATOCRIT 37.7 % (42.0-52.0); HEMOGLOBIN 12.4 g/dl (13.5-17.5); MEAN CORPUSCULAR HEMOGLOBIN 29.1 pg (27.0-33.0); MEAN CORPUSCULAR HGB CONC 32.9 g/dl (32.0-36.5); MEAN CORPUSCULAR VOLUME 88.5 fl (80.0-96.0); PLATELET COUNT, AUTOMATED 201 10^3/uL (150-450); RED BLOOD COUNT 4.26 10^6/uL (4.30-6.10); WHITE BLOOD COUNT 8.4 10^3/uL (4.0-10.0)
[2022-04-29 06:52] LABS: BLOOD UREA NITROGEN 25 MG/DL (7-18); CALCIUM LEVEL 9.3 MG/DL (8.8-10.2); CARBON DIOXIDE LEVEL 26 MEQ/L (21-32); CHLORIDE LEVEL 112 MEQ/L (98-107); CREATININE FOR GFR 1.19 MG/DL (0.70-1.30); GLOMERULAR FILTRATION RATE > 60.0 (>42); GLUCOSE, FASTING 93 MG/DL (70-100); POTASSIUM SERUM 4.5 MEQ/L (3.5-5.1); SODIUM LEVEL 142 MEQ/L (136-145)
[2022-04-29] MEDS ORDERED: FUROSEMIDE 40MG/4ML VIAL (J1940) IV STA (08:52)
[2022-04-29] MEDS ORDERED: LEVALBUTEROL HFA 45MCG/ACT 15 GM INHALER INH PRN (08:55)
[2022-04-29] MEDS ORDERED: DONEPEZIL 5 MG TAB PO SCH (09:00)
[2022-04-29] MEDS ORDERED: ROSUVASTATIN 10 MG TAB (CRESTOR) PO SCH (09:00)
[2022-04-29] MEDS ORDERED: ASPIRIN 81MG ENTERIC TABLET PO SCH (09:00)
[2022-04-29] MEDS ORDERED: FAMOTIDINE 20 MG TAB PO SCH (09:00)
[2022-04-29] MEDS ORDERED: DOCUSATE SODIUM 100MG CAPSULE PO SCH (09:00)
[2022-04-29] MEDS ORDERED: HEPARIN SOD (PORCINE) 5000UNITS/ML 1ML VIAL/SYRINGE SC SCH (09:00)
[2022-04-29] MEDS: levETIRAcetam 250MG TABLET (KEPPRA) PO SCH (09:59)
[2022-04-29] MEDS ORDERED: MM S100C PO (11:11)
== END 2022-04-29 13:20 | disposition home health service (06) | DRG 72 ==
LOC: EDBD 11:28 → M ED 11:28 → M ED INP 17:12 → M MS5PR 22:20
PROVIDERS: ADMIT Internal Medicine; ATTEND Internal Medicine
DX: G93.41 Metabolic encephalopathy (principal); T42.6X5A Adverse effect of other antiepileptic and sedative-hypnotic drugs, initial encounter; G40.209 Localization-related (focal) (partial) symptomatic epilepsy and epileptic syndromes with complex partial seizures, not intractable, without status epilepticus; E86.0 Dehydration; Z66 Do not resuscitate; E11.9 Type 2 diabetes mellitus without complications; I10 Essential (primary) hypertension; F32.A Depression, unspecified; E78.5 Hyperlipidemia, unspecified; J44.9 Chronic obstructive pulmonary disease, unspecified; F20.9 Schizophrenia, unspecified; Z90.49 Acquired absence of other specified parts of digestive tract; Z20.822 Contact with and (suspected) exposure to COVID-19; Z79.82 Long term (current) use of aspirin; Z79.899 Other long term (current) drug therapy; Z88.5 Allergy status to narcotic agent; Z88.8 Allergy status to other drugs, medicaments and biological substances; Z87.891 Personal history of nicotine dependence; G30.9 Alzheimer's disease, unspecified; F02.80 Dementia in other diseases classified elsewhere, unspecified severity, without behavioral disturbance, psychotic disturbance, mood disturbance, and anxiety; J45.909 Unspecified asthma, uncomplicated

== ENCOUNTER 2023-04-14 10:33 | Emergency (ER) | payer MEDICARE ==
[~2023-04-14] VITALS: Ht 167.6 cm; Wt 69.0 kg
[2023-04-14 10:33] VITALS: BP 122/60
[~2023-04-14 10:33] MED LIST changes: +LEVE250T5 PO; +MM S100C PO
[2023-04-14] MEDS ORDERED: cefTRIAXone SOD 1 GM in D5W MINI-BAG PLUS 50 ML IV ONE (12:25)
[2023-04-14] MEDS ORDERED: methylPREDNISolone 125MG 2ML VIAL IV ONE (12:25)
[2023-04-14] MEDS ORDERED: AMOX875T2 PO (12:30)
[2023-04-14] MEDS ORDERED: TRAM50TA2 PO (12:30)
[2023-04-14] MEDS ORDERED: LIDO15SO PO (12:30)
[2023-04-14] MEDS ORDERED: PRED20TA PO (12:30)
[2023-04-14 12:35] LABS: BASO % 0.5 % (0.0-1.0); EOS # 0.2 10^3/uL (0.0-0.5); EOS % 2.2 % (0.0-3.0); HEMATOCRIT 38.5 % (42.0-52.0); HEMOGLOBIN 12.4 g/dl (13.5-17.5); LYMPH # 1.8 10^3/uL (1.5-5.0); LYMPH % 20.9 % (24.0-44.0); MEAN CORPUSCULAR HEMOGLOBIN 29.5 pg (27.0-33.0); MEAN CORPUSCULAR HGB CONC 32.2 g/dl (32.0-36.5); MEAN CORPUSCULAR VOLUME 91.7 fl (80.0-96.0); MONO % 22.1 % (2.0-8.0); NEUTROPHILS # 4.6 10^3/uL (1.5-8.5); NEUTROPHILS % 54.1 % (36.0-66.0); PLATELET COUNT, AUTOMATED 273 10^3/uL (150-450); WHITE BLOOD COUNT 8.5 10^3/uL (4.0-10.0)
[2023-04-14 12:40] LABS: ERYTHROCYTE SEDIMENTATION RATE 57 mm/hr (0-20)
[2023-04-14 12:49] LABS: MONO # 1.9 10^3/uL (0.0-0.8)
== END 2023-04-14 12:49 | disposition home or self-care (01) ==
LOC: M ED 10:33
DX: K04.7 Periapical abscess without sinus (principal); K02.9 Dental caries, unspecified; R22.0 Localized swelling, mass and lump, head; E11.9 Type 2 diabetes mellitus without complications; I10 Essential (primary) hypertension; F20.9 Schizophrenia, unspecified; J44.9 Chronic obstructive pulmonary disease, unspecified; R06.9 Unspecified abnormalities of breathing; Z79.82 Long term (current) use of aspirin; Z79.899 Other long term (current) drug therapy; Z88.5 Allergy status to narcotic agent; Z88.8 Allergy status to other drugs, medicaments and biological substances
CPT/HCPCS: 36415; 80047; 85025; 85652; 86140; 96374; 96375; 99284; J0696; J2930